=== PATIENT | male | born 1965 | race Caucasian/White ===

== ENCOUNTER 2018-12-29 21:15 | Emergency (ER) | payer BC ==
[2018-12-29] MEDS ORDERED: IBUPROFEN 400 MG TAB PO STA (21:46)
--- NOTE | 2018-12-29 22:04 | XR ---
EXAMINATION TYPE: XR chest 2V DATE OF EXAM: 12/29/2018 COMPARISON: NONE HISTORY: Cough and fever TECHNIQUE: Frontal and lateral views of the chest are obtained. FINDINGS: Heart and mediastinum are normal. Lungs are clear. Diaphragm is normal. There are sternal wires. Bony thorax is intact. There is some thickening left ninth rib that could be old healed fractu re. IMPRESSION: No active cardiopulmonary disease.
--- NOTE | 2018-12-29 22:06 | ED ---
Fever HPI - General Chief Complaint: Fever Stated Complaint: Cough Time Seen by Provider: 12/29/18 21:40 Source: patient, RN notes reviewed Mode of arrival: ambulatory Limitations: no limitations - History of Present Illness Initial Comments: This is a 53-year-old male who presents with complaints of a cough fever some generalized weakness some rhinorrhea began yesterday. He states his daughter was recently diagnosed with influenza type B about 2 days ago. He believes he may have gotten the same thing. No chest pain no nausea vomiting no other mo difying factors this time MD Complaint: fever, malaise - Related Data Home Medications Medication Instructions Recorded Confirmed Aspirin EC [Ecotrin Low Dose] 81 mg PO DAILY 12/29/18 12/29/18 DULoxetine HCL [Cymbalta] 60 mg PO DAILY 12/29/18 12/29/18 Lisinopril [Zestril] 5 mg PO DAILY 12/29/18 12/29/18 Metoprolol Tartrate [Lopressor] 50 mg PO BID 12/29/18 12/29/18 Omeprazole 20 mg PO DAILY 12/29/18 12/29/18 Previous Rx's Medication Instructions Recorded Ibuprofen 800 mg PO Q6HR PRN #20 tablet 12/29/18 Oseltamivir [Tamiflu] 75 mg PO Q12HR #10 cap 12/29/18 Allergies Allergy/AdvReac Type Severity Reaction Status Date / Time No Known Allergies Allergy Verified 12/29/18 22:36 Review of Systems ROS Statement: Those systems with pertinent positive or pertinent negative responses have been documented in the HPI. ROS Other: All systems not noted in ROS Statement are negative. Past Medical History Past Medical History: Diabetes Mellitus, Hypertension History of Any Multi-Drug Resistant Organisms: None Reported Past Surgical History: Back Surgery, Coronary Bypass/CABG Past Psychological History: No Psychological Hx Reported Smoking Status: Current some day smoker Past Alcohol Use History: Rare Past Drug Use History: None Reported General Exam - General Exam Comments Initial Comments: This is a well-developed well-nourished awake alert oriented 3 male Limitations: no limitations General appearance: alert, anxious Head exam: Present: atraumatic, normocephalic, normal inspection Eye exam: Present: PERRL, EOMI ENT exam: Present: other (Boggy swollen nasal mucosa) Neck exam: Present: normal inspection. Absent: tenderness, meningismus, lymphadenopathy Respiratory exam: Present: normal lung sounds bilaterally. Absent: respiratory distress, wheezes, rales, rhonchi, stridor Cardiovascular Exam: Present: regular rate, normal rhythm, normal heart sounds. Absent: systolic murmur, diastolic murmur, rubs, gallop, clicks GI/Abdominal exam: Present: soft, normal bowel sounds. Absent: distended, tenderness, guarding, rebound, rigid Extremities exam: Present: normal inspection, full ROM, normal capillary refill. Absent: tenderness, pedal edema, joint swelling, calf tenderness Back exam: Present: normal inspection Neurological exam: Present: alert, oriented X3, CN II-XII intact Psychiatric exam: Present: normal affect, normal mood Skin exam: Present: warm, dry, intact, normal color. Absent: rash Course Vital Signs 12/29/18 12/29/18 21:29 23:09 Temperature 103 F H 102.4 F H Pulse Rate 98 Respiratory 24 Rate Blood Pressure 132/76 O2 Sat by Pulse 96 Oximetry Medical Decision Making - Medical Decision Making Patient was nauseated he feels improved after Zofran. Patient was given Tamiflu. He is influenza type B positive. I did have a discussion with him regarding the findings. Patient will be discharged on appropriate medication - Lab Data Lab Results 12/29/18 Range/Units 21:50 Influenza Type A RNA Not Detected (Not Detectd) Influenza Type B (PCR) Detected H (Not Detectd) - Radiology Data Radiology results: report reviewed (I did review the imaging and report no acute findings), image reviewed Disposition Clinical Impression: Febrile illness, acute, Influenza B Disposition: HOME SELF-CARE Condition: Good Instructions (If sedation given, give patient instructions): Fever in Adults (ED), Viral Syndrome (ED), Influenza (ED) Prescriptions: Ibuprofen 800 mg PO Q6HR PRN #20 tablet PRN Reason: Pain Oseltamivir [Tamiflu] 75 mg PO Q12HR #10 cap Is patient prescribed a controlled substance at d/c from ED?: No Referrals: Nonstaff,Physician [Primary Care Provider] - 1-2 days
[2018-12-29] MEDS ORDERED: ONDANSETRON ODT 4 MG TAB PO STA (22:28)
[2018-12-29] MEDS ORDERED: OSELTAMIVIR 75 MG CAP PO STA (22:30)
[2018-12-29] MEDS ORDERED: ACETAMINOPHEN TAB 500 MG TAB PO STA (22:56)
[2018-12-29 23:10] VITALS: TEMP 102.4
[2018-12-29 23:35] VITALS: BP 154/99; PULSE 90; RESP 22
== END 2018-12-29 23:36 | disposition home or self-care (01) ==
LOC: EC 21:15
DX: J10.1 Influenza due to other identified influenza virus with other respiratory manifestations (principal); R11.0 Nausea; I10 Essential (primary) hypertension; F17.200 Nicotine dependence, unspecified, uncomplicated; Z79.82 Long term (current) use of aspirin; Z79.899 Other long term (current) drug therapy; Z95.1 Presence of aortocoronary bypass graft
CPT/HCPCS: 71046; 87502; 99283

== ENCOUNTER 2020-07-19 01:25 | Emergency (ER) | payer BC ==
[2020-07-19 01:41] VITALS: BP 179/79; PULSE 97; RESP 18; TEMP 98.5
[2020-07-19] MEDS ORDERED: cefTRIAXone 250 MG VIAL IM STA (02:17)
--- NOTE | 2020-07-19 02:17 | ED ---
Extremity Problem HPI - General Chief complaint: Extremity Problem,Nontraumatic Stated complaint: Left finger pain Time Seen by Provider: 07/19/20 01:54 Source: patient Mode of arrival: ambulatory Limitations: no limitations - History of Present Illness Initial comments: Patient is a 55-year-old male presenting to emergency Department with complaints of pain in his left index finger with her increasing over the past few days. Patient states he has had infections near his nail bed in the past, he's had them drained in the past. He states he has not been on antibiotics for a month. States last few days he's noticed swelling and some mild redness to the the finger and would like antibiotics before the infection gets worse. He states he does chew on his fingernails a lot and that the cause of it. He has not seen a hand specialist for this. He denies any fever or chills, no nausea or vomiting. He has no further complaints at this time. - Related Data Home Medications Medication Instructions Recorded Confirmed Aspirin EC [Ecotrin Low Dose] 81 mg PO DAILY 12/29/18 12/29/18 DULoxetine HCL [Cymbalta] 60 mg PO DAILY 12/29/18 12/29/18 Metoprolol Tartrate [Lopressor] 50 mg PO BID 12/29/18 12/29/18 Omeprazole 20 mg PO DAILY 12/29/18 12/29/18 lisinopriL [Zestril] 5 mg PO DAILY 12/29/18 12/29/18 Previous Rx's Medication Instructions Recorded Ibuprofen 800 mg PO Q6HR PRN #20 tablet 12/29/18 Oseltamivir [Tamiflu] 75 mg PO Q12HR #10 cap 12/29/18 Cephalexin [Keflex] 500 mg PO Q6HR 5 Days #20 cap 07/19/20 Allergies Allergy/AdvReac Type Severity Reaction Status Date / Time No Known Allergies Allergy Verified 07/19/20 01:41 Review of Systems ROS Statement: Those systems with pertinent positive or pertinent negative responses have been documented in the HPI. ROS Other: All systems not noted in ROS Statement are negative. Past Medical History Past Medical History: Diabetes Mellitus, Hypertension History of Any Multi-Drug Resistant Organisms: None Reported Past Surgical History: Back Surgery, Coronary Bypass/CABG Past Psychological History: No Psychological Hx Reported Smoking Status: Current every day smoker Past Alcohol Use History: Rare Past Drug Use History: Marijuana General Exam - General Exam Comments Initial Comments: GENERAL: Patient is well-developed and well-nourished. Patient is nontoxic and in no acute distress. HEAD: Atraumatic, normocephalic. EYES: Pupils equal round and reactive to light, extraocular movements intact, sclera anicteric, conjunctiva are normal. Eyelids were unremarkable. ENT: TMs normal, nares patent, oropharynx clear without exudates. Moist mucous membranes. NECK: Normal range of motion, supple without lymphadenopathy or JVD. LUNGS: Unlabored respirations. Breath sounds clear to auscultation bilaterally and equal. No wheezes rales or rhonchi. HEART: Regular rate and rhythm without murmurs, rubs or gallops. ABDOMEN: Soft, nontender, normoactive bowel sounds. No guarding, no rebound. No masses appreciated. : Deferred MUSCULOSKELETAL: Patient has full range of motion of his left hand and fingers. Normal extremities with adequate strength and normal range of motion, no pitting or edema. No clubbing or cyanosis. NEUROLOGICAL: Patient is alert and oriented x 3. Motor and sensory are also intact. Normal speech, normal gait. PSYCH: Normal mood, normal affect. SKIN: Warm, Dry, normal turgor, no rashes or lesions noted. Patient has a very mild erythema of the left distal index finger, near the nail. There is no abscess, no felon. Limitations: no limitations Course Vital Signs 07/19/20 01:37 Temperature 98.5 F Pulse Rate 97 Respiratory 18 Rate Blood Pressure 179/79 O2 Sat by Pulse 98 Oximetry Medical Decision Making - Medical Decision Making Patient is a 55-year-old male here for left index finger pain is increasing the past few months. There is a very mild erythema to the area and no swelling, no signs of infection. His vitals are stable he is afebrile. Patient is requesting to be put on antibiotics as he has had infections in the same spot in the past. He states the "shot works better." Patient will be given 250mg of rocephin and started on keflex. Given hand specialist referral. He is stable for discharge. He is in agreement with this plan of care. Return parameters were discussed with the patient he verbalizes understanding. Disposition Clinical Impression: Cellulitis of left index finger Disposition: HOME SELF-CARE Condition: Stable Instructions (If sedation given, give patient instructions): Arthralgia (ED) Additional Instructions: Please return to the Emergency Department if symptoms worsen or any other concerns. Take antibiotics as prescribed. Follow up with hand specialist as discussed. Prescriptions: Cephalexin [Keflex] 500 mg PO Q6HR 5 Days #20 cap Is patient prescribed a controlled substance at d/c from ED?: No Referrals: Nonstaff,Physician [Primary Care Provider] - 1-2 days Dany Lee DO [Doctor of Osteopathic Medicine] - 1-2 days
== END 2020-07-19 02:38 | disposition home or self-care (01) ==
LOC: EC 01:25
DX: L03.012 Cellulitis of left finger (principal); E11.9 Type 2 diabetes mellitus without complications; I10 Essential (primary) hypertension; F17.200 Nicotine dependence, unspecified, uncomplicated; Z79.82 Long term (current) use of aspirin; Z79.899 Other long term (current) drug therapy; Z95.1 Presence of aortocoronary bypass graft
CPT/HCPCS: 99283; 96372; J0696

== ENCOUNTER 2020-07-22 16:51 | Inpatient (IN) | payer BC ==
[2020-07-22] MEDS ORDERED: MAG HYDROX/AL HYDROX/SIMETH 30 ML CUP PO PRN (17:09)
[2020-07-22] MEDS ORDERED: ACETAMINOPHEN TAB 325 MG TAB PO PRN (17:09)
[2020-07-22] MEDS ORDERED: ONDANSETRON 4 MG/2 ML VIAL IVP PRN (17:09)
[2020-07-22] MEDS ORDERED: DOCUSATE 100 MG CAP PO PRN (17:09)
[2020-07-22] MEDS ORDERED: LOPERAMIDE 2 MG CAP PO PRN (17:09)
[2020-07-22] MEDS ORDERED: TEMAZEPAM 15 MG CAP PO PRN (17:09)
[2020-07-22] MEDS ORDERED: NALOXONE 0.4 MG/ML 1 ML VIAL IV PRN (17:09)
[2020-07-22] MEDS ORDERED: MAGNESIUM HYDROXIDE 2,400 MG/10 ML CUP PO PRN (17:09)
[2020-07-22] MEDS ORDERED: bisacodyL 5 MG TABLET.DR PO PRN (17:09)
[2020-07-22] MEDS ORDERED: VANCOMYCIN IV PER PHARMACY 1 EACH MISC MISCELLANE SCH (17:15)
--- NOTE | 2020-07-22 17:47 | P.HPOR ---
History of Present Illness H&P Date: 07/22/20 Chief Complaint: Left index finger infection This is a 55-year-old male who presented to our office today with history of chronic infection to the left index finger. He states that he has been to the emergency department a couple of times and has been on antibiotics for his infection. He states that he does bite his fingernails and is diabetic. X-rays were taken in our office today which showed osteomyelitis to the distal phalanx of the left index finger. A debridement was performed in the office today and purulent material was drained from the finger. Cultures were taken. He reports no fever or chills. Past Medical History Past Medical History: Diabetes Mellitus, Hypertension History of Any Multi-Drug Resistant Organisms: None Reported Past Surgical History: Back Surgery, Coronary Bypass/CABG Past Psychological History: No Psychological Hx Reported Smoking Status: Current every day smoker Past Alcohol Use History: Rare Past Drug Use History: Marijuana Medications and Allergies Home Medications Medication Instructions Recorded Confirmed Type Aspirin EC [Ecotrin Low Dose] 81 mg PO DAILY 12/29/18 12/29/18 History DULoxetine HCL [Cymbalta] 60 mg PO DAILY 12/29/18 12/29/18 History Ibuprofen 800 mg PO Q6HR PRN #20 tablet 12/29/18 Rx Metoprolol Tartrate [Lopressor] 50 mg PO BID 12/29/18 12/29/18 History Omeprazole 20 mg PO DAILY 12/29/18 12/29/18 History Oseltamivir [Tamiflu] 75 mg PO Q12HR #10 cap 12/29/18 Rx lisinopriL [Zestril] 5 mg PO DAILY 12/29/18 12/29/18 History Cephalexin [Keflex] 500 mg PO Q6HR 5 Days #20 cap 07/19/20 Rx Allergies Allergy/AdvReac Type Severity Reaction Status Date / Time No Known Allergies Allergy Verified 07/19/20 01:41 Physical Examination Exam Of the left upper extremity Reveal swelling and mild erythema to the left index fingertip. There is slight deformity to the nail bed. There is no active drainage. He has dulled sensation to the fingertip. Fairly normal motion to the MCP And PIP joints. Slight limitation in motion at the DIP joint. Results X-rays taken in our office today show bony erosion consistent with osteomyelitis to the distal phalanx. No acute fracture noted. Assessment and Plan (1) Osteomyelitis of finger of left hand Status: Acute Code(s): M86.9 - OSTEOMYELITIS, UNSPECIFIED SNOMED Code(s): 98380185 (2) Diabetes Status: Acute Code(s): E11.9 - TYPE 2 DIABETES MELLITUS WITHOUT COMPLICATIONS SNOMED Code(s): 82676341 (3) Cellulitis of left index finger Status: Acute Code(s): L03.012 - CELLULITIS OF LEFT FINGER SNOMED Code(s): 43175130 Plan: The clinical and electrical findings are discussed with the patient. An I&D as performed in the office today. Partial removal of the nail is also performed. Some purulent material drained from under the nail. The wound was irrigated. Packing is placed in the wound. Cultures are taken. He'll be admitted to the hospital for IV antibiotics and consultation with internal medicine and infectious disease. Please see admission orders.
[2020-07-22 18:59] LABS: Basophils # (A) 0.1 k/uL (0-0.2); Basophils % (A) 1 %; Eosinophils # (A) 0.2 k/uL (0-0.7); Eosinophils % (A) 2 %; HCT 50.2 % (39.0-53.0); HGB 16.8 gm/dL (13.0-17.5); Lymphocytes # (A) 2.5 k/uL (1.0-4.8); Lymphocytes % (A) 27 %; MCH 31.1 pg (25.0-35.0); MCHC 33.4 g/dL (31.0-37.0); MCV 93.1 fL (80.0-100.0); Mean Platelet Volume 7.2; Monocytes # (A) 0.6 k/uL (0-1.0); Monocytes % (A) 6 %; Neutrophils # (A) 5.6 k/uL (1.3-7.7); Neutrophils % (A) 62 %; Platelet Count 256 k/uL (150-450)
[2020-07-22] MEDS ORDERED: VANCOMYCIN 1,500 MG in SODIUM CHLORIDE 0.9% 250 ML IVPB ONE (19:00)
[2020-07-22 19:04] LABS: ALT 23 U/L (4-49); AST 23 U/L (17-59); African American GFR (CKD) >90 (>60 ml/min/1.73 sqM); Albumin 4.2 g/dL (3.5-5.0); Albumin/Globulin Ratio 1.3; Alkaline Phosphatase 108 U/L (38-126); Anion Gap 8 mmol/L; Blood Urea Nitrogen 17 mg/dL (9-20); Calcium 9.8 mg/dL (8.4-10.2); Carbon Dioxide 24 mmol/L (22-30); Chloride 99 mmol/L (98-107); Globulin 3.2 g/dL; Glucose 424 mg/dL (74-99); Non-African American GFR(CKD) >90 (>60 ml/min/1.73 sqM); Potassium 4.4 mmol/L (3.5-5.1); Sodium 131 mmol/L (137-145); Total Bilirubin 0.5 mg/dL (0.2-1.3); Total Protein 7.4 g/dL (6.3-8.2)
[2020-07-22 20:10] LABS: Glucose,Whole Blood 405 mg/dL (75-99)
--- NOTE | 2020-07-22 20:30 | P.CONS ---
History of Present Illness - Reason for Consult Consult date: 07/22/20 hyperglycemia Requesting physician: Williams Lee - Chief Complaint left index finger osteomyelitis - History of Present Illness 55 year old male with DM poorly controlled , Hypertension patient comes in direct admit from ortho office for left index finger osteomyelitis, patient had swelling and pain for about 2 months now, received multiple antibiotic courses and drainage was done once, but the infection keeps recurring. today he was evaluated by hand surgeon, who diagnosed patient with osteomyeilitis. debridement was done and tissue cultures obtained. patient a dmitted for IV antibiotics. he otherwise reports pain well controlled at this time. denies any fever or chills. he has hyperglycemia, and claims compliance with insulin, however, he admits that his diet is not well controlled, and he often finds his blood sugar above 200. he reports peripheral neuropathy, and a lesion over his right foot at the base of the 5th metatarsal bone , where he was supposed to have some debridement done for it couple weeks ago , but had to be rescheduled due to hyperglycemia he otherwise denies any chest pain , URI symptoms, GI symptoms, or urinary changes. Review of Systems Pertinent positives as noted in HPI. All other systems were reviewed and are negative Past Medical History Past Medical History: Diabetes Mellitus, Hypertension Additional Past Medical History / Comment(s): pancreatitis History of Any Multi-Drug Resistant Organisms: None Reported Past Surgical History: Back Surgery, Coronary Bypass/CABG Past Psychological History: No Psychological Hx Reported Smoking Status: Current every day smoker Past Alcohol Use History: Rare Past Drug Use History: Marijuana - Past Family History Mother Additional Family Medical History / Comment(s): pancreatitis Medications and Allergies Home Medications Medication Instructions Recorded Confirmed Type Aspirin EC [Ecotrin Low Dose] 81 mg PO DAILY 12/29/18 07/22/20 History DULoxetine HCL [Cymbalta] 60 mg PO DAILY 12/29/18 07/22/20 History Metoprolol Tartrate [Lopressor] 50 mg PO BID 12/29/18 07/22/20 History Insulin Aspart [NovoLOG Flexpen] 14 units SQ AC-TID 07/22/20 07/22/20 History Insulin NPH Human Isophane 52 units SQ HS 07/22/20 07/22/20 History [NovoLIN N] Allergies Allergy/AdvReac Type Severity Reaction Status Date / Time No Known Allergies Allergy Verified 07/22/20 18:52 Physical Exam Vitals: Vital Signs Temp Pulse Resp BP Pulse Ox 07/22/20 18:26 98.4 F 88 16 148/92 98 Intake and Output 07/22/20 07/22/20 07/22/20 06:59 14:59 22:59 Other: Weight 95.254 kg Constitutional: No acute distress, conversant, pleasant Eyes: Anicteric sclerae, moist conjunctiva, Pupils equal round reactive to light ENMT: NC/AT Oropharynx clear, no erythema, or exudates Neck: Supple, FROM, no masses, or JVD No carotid bruits No thyromegaly Lungs: Clear to auscultation Clear to percussion Normal respiratory effort, no accessory muscle use Cardiovascular: Heart regular in rate and rhythm, No murmurs, gallops, or rubs No peripheral edema Abdominal: Soft Nontender, no guarding, rebound or rigidity Abdomen moving with respiration Normoactive bowel sounds No hepatomegaly, No splenomegaly No palpable mass No abdominal wall hernia noted Skin: Normal temperature, tone, texture, turgor No induration No subcutaneous nodules small area of skin thickening over the base of 5th metatarsal bone, no open wounds or drainage no tenderness or erythema No ulcers Extremities: left index finger wrapped in surgical dressing looks dry intact and clean No digital cyanosis No clubbing Pedal pulses intact and symmetrical Radial pulses intact and symmetrical No calf tenderness Psychiatric: Alert and oriented to person, place and time Appropriate affect fair judgement Neuro Muscles Strength 5/5 in all 4 extremities Sensation to light touch grossly present throughout Cranial nerves II-XII grossly intact No focal sensory deficits Lymphatics: no palpable cervical or supraclavicular , or inguinal lymph nodes Results CBC & Chem 7: 07/22/20 18:36 07/22/20 18:36 Labs: Abnormal Lab Results - Last 24 Hours (Table) 07/22/20 Range/Units 18:36 Sodium 131 L (137-145) mmol/L Glucose 424 H (74-99) mg/dL Assessment and Plan Assessment: osteomyelitis of left index finger s/p debridement and tissue cultures follow up cultures on Vancomycin pain control tylenol for fever DM with hyperglycemia check A1C preprandial insulin and long acting insulin insulin sliding scale hypertension , controlled resume home meds history of CAD resume home meds tobacco smoking counseled to quit smoking nicotine replacement therapy CODE STATUS full code DVT prophylaxis: heparin sc tid Thank you for allowing us to participate in the care of this patient. Do not hesitate to contact us with questions. Someone can be reached from the [facility] hospitalist group at all hours of the day at [phone].
[2020-07-22] MEDS: SODIUM CHLORIDE 0.9% 1,000 ML IV SCH (21:29)
[2020-07-22] MEDS: NICOTINE 14MG/24HR PATCH TRANSDERM SCH (21:29)
[2020-07-22] MEDS: INSULIN NPH 300 UNIT/3 ML VIAL SQ SCH (21:29)
[2020-07-22] MEDS: METOPROLOL TARTRATE 50 MG TAB PO SCH (21:30)
[2020-07-22] MEDS: HYDROcodone/APAP 5-325MG 1 EACH TAB PO PRN (21:30)
[2020-07-22] MEDS: INSULIN ASPART (NovoLOG) 100 UNIT/ML VIAL SQ SCH (21:30)
[2020-07-22] MEDS: HEPARIN SODIUM,PORCINE 5,000 UNIT/ML 1 ML VIAL SQ SCH (23:43)
[2020-07-22] MEDS: MORPHINE SULFATE 4 MG/ML SYRINGE IVP PRN (23:46)
[2020-07-23] MEDS: MORPHINE SULFATE 4 MG/ML SYRINGE IVP PRN ×4 (04:52→20:51)
[2020-07-23] MEDS: VANCOMYCIN 1,500 MG in SODIUM CHLORIDE 0.9% 250 ML IVPB SCH ×3 (05:48→20:52)
[2020-07-23 07:29] LABS: Glucose,Whole Blood 209 mg/dL (75-99)
[2020-07-23] MEDS: INSULIN ASPART (NovoLOG) 100 UNIT/ML VIAL SQ SCH ×7 (08:02→20:45)
[2020-07-23] MEDS: METOPROLOL TARTRATE 50 MG TAB PO SCH ×2 (08:03→20:53)
[2020-07-23] MEDS: DULoxetine HCL 60 MG CAPSULE.DR PO SCH (08:03)
[2020-07-23] MEDS: NICOTINE 14MG/24HR PATCH TRANSDERM SCH (08:06)
[2020-07-23] MEDS: HYDROcodone/APAP 5-325MG 1 EACH TAB PO PRN (08:14)
[2020-07-23] MEDS: HEPARIN SODIUM,PORCINE 5,000 UNIT/ML 1 ML VIAL SQ SCH ×3 (08:15→22:47)
--- NOTE | 2020-07-23 10:35 | P.PN ---
Subjective Progress Note Date: 07/23/20 This is a 55 year-old male who is admitted for chronic infection to the left index finger. Patient is seen and evaluated at bedside today. Patient states that the finger is still painful, but the pain has improved since yesterday. Patient states that he removed his packing earlier today. Patient denies any new complaints today. Objective - Vital Signs Vital signs: Vital Signs Temp 98.4 F 07/23/20 08:00 Pulse 72 07/23/20 08:00 Resp 16 07/23/20 08:00 BP 137/80 07/23/20 08:00 Pulse Ox 97 07/23/20 08:00 Intake & Output 07/22/20 07/23/20 07/23/20 18:59 06:59 18:59 Intake Total 200 Balance 200 Weight 95.254 kg Intake: Intake, IV Titration 200 Amount Sodium Chloride 0.9% 1, 200 000 ml @ 20 mls/hr IV . Q24H [facility] Rx#:[id number] Other: Voiding Method Toilet Toilet # Voids 3 - Exam On exam patient is resting comfortably in bed in no acute distress. Patient is alert and oriented x3. Dressing removed from left index finger. Mild bloody drainage present on bandage. No active drainage. No purulent drainage present. There is swelling of the distal left index finger. Mild erythema. Sensation intact. Neurovascular status and circulatory status are intact. - Labs CBC & Chem 7: 07/22/20 18:36 07/22/20 18:36 Labs: Abnormal Lab Results - Last 24 Hours (Table) 07/22/20 07/22/20 07/23/20 Range/Units 18:36 20:08 07:02 Sodium 131 L (137-145) mmol/L Glucose 424 H (74-99) mg/dL POC Glucose (mg/dL) 405 H 209 H (75-99) mg/dL Microbiology - Last 24 Hours (Table) 07/22/20 19:18 Gram Stain - Preliminary Finger - Left First Wound Culture - Preliminary 07/22/20 19:18 Anaerobic Culture - Preliminary Finger - Left First Assessment and Plan (1) Cellulitis of left index finger Current Visit: No Status: Acute Code(s): L03.012 - CELLULITIS OF LEFT FINGER SNOMED Code(s): 30713539 Plan: 1. Daily dressing changes. Wound care per infectious disease. 2. Continue IV antibiotics. 3. Appreciate input from internal medicine and infectious disease. 4. No surgical intervention planned. Anticipate discharge in the next 24-48 hours.
[2020-07-23] MEDS: guaiFENesin 600 MG TABLET.ER PO SCH ×2 (11:20→20:52)
--- NOTE | 2020-07-23 11:27 | P.PN ---
<Klever Edwards - Last Filed: 07/23/20 16:57> Subjective Progress Note Date: 07/23/20 Principal diagnosis: Chief Complaint Osteomyelitis left index finger History of presenting illness Patient is 55-year-old male with a past medical history of hypertension, and poorly controlled insulin-dependent diabetes mellitus. He presented to [facility] on 07/22/20 and is currently admitted under orthopedic surgery secondary to osteomyelitis of his left index finger. Patient has reportedly been undergoing outpatient treatment over the past 2 months for infection, swelling, and pain in his left index finger receiving multiple cours es of antibiotic treatment. He failed outpatient treatment and was seen in orthopedic office yesterday where an x-ray was completed revealing osteomyelitis to the distal phalanx of the left index finger. Debridement was performed and cultures were obtained. 07/23/20: Patient seen and evaluated at the bedside. He was resting comfortably with no complaints of pain or discomfort at this time. Dressing to left index finger was removed revealing mild swelling and inflammation surrounding fingernail and distal portion of his finger. Full range of motion and sensation intact. In addition patient reports having pain behind his right ear and some sinus drainage. Patient denies having any other complaints including fever, chills, diaphoresis, chest pain, or shortness of breath. Cultures obtained from left finger drainage status post debridement and currently pending results. Pt currently on IV vancomycin, pharmacy to dose. WBC count was 9.0 and will be repeated in a.m. Blood sugar initially poorly controlled with glucose 424 on presentation. Pt was placed on hypoglycemic protocol with sliding scale along with long acting and pre-prandial insulin in attempts to achieve tighter glycemic control. Currently blood glucose 209. Will continue to monitor with repeat a.m. labs. Physical Examination: General: non toxic, no distress, appears at stated age Derm: generally warm and dry with pink undertones. Dressing to left index finger was removed revealing mild swelling and inflammation surrounding fingernail and distal portion of his index finger. Full range of motion and sensation intact. Head: atraumatic, normocephalic, symmetric Eyes: EOMI, no lid lag, anicteric sclera Mouth: no lip lesion, mucus membranes moist Cardiovascular: S1S2 reg, no murmur, positive posterior tibial pulse bilateral, Lungs: Slightly diminished at bilateral bases with diffuse bilateral expiratory wheezes present (worse on right). Respirations even, regular, and unlabored on room air with no accessory muscle use. Coarse cough present on examination. (Pt states it is a chronic cough resulting from longstanding hx of smoking). Abdominal: soft, nontender to palpation, no guarding, no appreciable organomegaly Ext: no gross muscle atrophy, no edema, no contractures Neuro: CN II-XI grossly intact, no focal neuro deficits Psych: Alert, oriented, appropriate affect Objective - Vital Signs Vital signs: Vital Signs Temp 98.4 F 07/23/20 08:00 Pulse 72 07/23/20 08:00 Resp 16 07/23/20 08:00 BP 137/80 07/23/20 08:00 Pulse Ox 97 07/23/20 08:00 Intake & Output 07/22/20 07/23/20 07/23/20 18:59 06:59 18:59 Intake Total 200 Balance 200 Weight 95.254 kg Intake: Intake, IV Titration 200 Amount Sodium Chloride 0.9% 1, 200 000 ml @ 20 mls/hr IV . Q24H [facility] Rx#:[id number] Other: Voiding Method Toilet Toilet # Voids 3 - Labs CBC & Chem 7: 07/22/20 18:36 07/22/20 18:36 Labs: Abnormal Lab Results - Last 24 Hours (Table) 07/22/20 07/22/20 07/23/20 Range/Units 18:36 20:08 07:02 Sodium 131 L (137-145) mmol/L Glucose 424 H (74-99) mg/dL POC Glucose (mg/dL) 405 H 209 H (75-99) mg/dL Microbiology - Last 24 Hours (Table) 07/22/20 19:18 Gram Stain - Preliminary Finger - Left First Wound Culture - Preliminary 07/22/20 19:18 Anaerobic Culture - Preliminary Finger - Left First Assessment and Plan Plan: Osteomyelitis of left index finger -Dressing to left index finger was removed revealing mild swelling and inflammation surrounding fingernail and distal portion of his finger. -Full range of motion and sensation intact. -Cultures obtained from left finger drainage status post debridement and currently pending results. -Pt currently on IV vancomycin, pharmacy to dose. -WBC count was 9.0 and will be repeated in a.m -CRP ordered and will be repeated in a.m. -Wound care/dressing changes to continue daily and as needed. -Pain management with tylenol as needed for mild pain and/or fever, medical for moderate pain, and morphine for severe pain. -Infectioous disease consulted, appreciate recommendations. Insulin-dependent Diabetes mellitus type II with Hyperglycemia -Blood sugar initially poorly controlled with glucose 424 on presentation. Pt was placed on hypoglycemic protocol with sliding scale along with long acting and pre-prandial insulin in attempts to achieve tighter glycemic control. Currently blood glucose 209. -A1c Hypertension -Monitor vital signs and patient to continue daily medication management including metoprolol tartrate. Tobacco dependence -Counseled on importance of tobacco cessation and risks of continued use. -Nicotine patch CODE STATUS Full code DVT prophylaxis: Heparin Thank you for allowing us to participate in the care of this patient. Do not hesitate to contact us with questions. Someone can be reached from the [facility] hospitalist group at all hours of the day at [phone]. <Marcelina Caicedo - Last Filed: 07/23/20 19:37> Objective - Vital Signs Vital signs: Vital Signs Temp 98.5 F 07/23/20 14:00 Pulse 85 07/23/20 14:00 Resp 16 07/23/20 14:00 BP 161/80 07/23/20 14:00 Pulse Ox 98 07/23/20 14:00 Intake & Output 07/23/20 07/23/20 07/24/20 06:59 18:59 06:59 Intake Total 200 450 Balance 200 450 Intake: Intake, IV Titration 200 Amount Sodium Chloride 0.9% 1, 200 000 ml @ 20 mls/hr IV . Q24H [facility] Rx#:[id number] Oral 450 Other: Voiding Method Toilet Toilet # Voids 3 2 - Labs CBC & Chem 7: 07/22/20 18:36 07/22/20 18:36 Labs: Abnormal Lab Results - Last 24 Hours (Table) 07/22/20 07/23/20 07/23/20 Range/Units 20:08 06:17 07:02 POC Glucose (mg/dL) 405 H 209 H (75-99) mg/dL Hemoglobin A1c 14.6 H (4.0-6.0) % 07/23/20 07/23/20 Range/Units 11:28 17:00 POC Glucose (mg/dL) 74 L 324 H (75-99) mg/dL Hemoglobin A1c (4.0-6.0) % Microbiology - Last 24 Hours (Table) 07/22/20 19:18 Gram Stain - Preliminary Finger - Left First Wound Culture - Preliminary 07/22/20 19:18 Anaerobic Culture - Preliminary Finger - Left First Assessment and Plan Plan: Patient seen and examined independently. Patient was also seen by Klever Edwards NP and case was discussed. I am in agreement with subjective, physical exam, assessment and plan as written above and amended below. General: Ill-appearing, no distress, appears at stated age Derm: Dressing in place over left second finger warm, dry Head: atraumatic, normocephalic, symmetric Eyes: EOMI, no lid lag, anicteric sclera Mouth: no lip lesion, mucus membranes moist Cardiovascular: S1S2 reg, no murmur, positive posterior tibial pulse bilateral, Lungs: CTA bilateral, no rhonchi, no rales , no accessory muscle use Abdominal: soft, nontender to palpation, no guarding, no appreciable organomegaly Ext: no gross muscle atrophy, no edema, no contractures Neuro: CN II-XI grossly intact, no focal neuro deficits Psych: Alert, oriented, appropriate affect Osteomyelitis, left second digit - add unasyn
--- NOTE | 2020-07-23 11:33 | XR ---
EXAMINATION TYPE: XR chest 1V portable DATE OF EXAM: 07/23/2020 COMPARISON: Prior chest x-ray 12/29/2018 HISTORY: Wheezing, congestion, cough TECHNIQUE: Single frontal view of the chest is obtained. FINDINGS: There is no focal air space opacity, pleural effusion, or pneumothorax seen. The cardiac silhouette size is within normal limits. The osseous structures are intact. IMPRESSION: No acute process.
[2020-07-23 11:36] LABS: Glucose,Whole Blood 74 mg/dL (75-99)
--- NOTE | 2020-07-23 14:19 | XR ---
Second digit left hand HISTORY: Infection 3 views the second digit left hand There is bone erosion of the tuft medially at the second digit of the left hand. Soft tissue swelling is present. No evident periostitis. Some osteoarthritic changes are present at the interphalangeal j oints. IMPRESSION: Findings consistent with osteomyelitis
[2020-07-23] MEDS: SODIUM CHLORIDE 0.9% 1,000 ML IV SCH (16:12)
[2020-07-23 17:09] LABS: Glucose,Whole Blood 324 mg/dL (75-99)
[2020-07-23] MEDS: AMPICILLIN-SULBACTAM 3 GM in SODIUM CHLORIDE 0.9% 100 ML IVPB SCH ×2 (17:39→23:48)
[2020-07-23 19:13] LABS: Hemoglobin A1C 14.6 % (4.0-6.0)
[2020-07-23 20:45] LABS: Glucose,Whole Blood 262 mg/dL (75-99)
[2020-07-23] MEDS: INSULIN NPH 300 UNIT/3 ML VIAL SQ SCH (20:52)
[2020-07-23 22:02] LABS: Anion Gap 10.9 mmol/L (4.00-12.00); BUN/Creat Ratio 17.78 Ratio (12.00-20.00); Carbon Dioxide 24.1 mmol/L (21.6-31.8); Non-African American GFR(CKD) 95.8 (60.0-200.0); Potassium 3.8 mmol/L (3.5-5.5)
--- NOTE | 2020-07-23 22:35 | P.CONS ---
History of Present Illness - Reason for Consult Consult date: 07/23/20 Left index finger infection/osteomyelitis Requesting physician: Charla Ellsworth - Chief Complaint left index finger nonhealing infection x 2 months - History of Present Illness Patient is a 55-year-old male who apparently did have the have habit of chewing on his left index finger, patient subsequently did develop a wound to the left index finger with secondary pain swelling and redness for the patient has been seen twice at [facility] ER and the patient has been given 2 different courses of antibiotic with the patient not sure about the name patient did not have any improvement subsequently patient was referred to orthopedic associate patient apparently did have x-rays taken and he did have x- rays taken the office with evidence of osteomyelitis of distal phalanx of the left index finger patient did have debridement in the office with evidence of purulent material cultures were obtained and the patient was subsequently sent to [facility] ER [facility] the [facility] for IV antibiotic therapy the patient started on vancomycin infectious was consulted for further management of antibiotic therapy patient currently complaining of pain to the left index finger to be dull aching 3-4 out of 10 and no radiation with associated surrounding swelling redness and minimal drainage Review of Systems Positive point has been mentioned in the HPI rest of the systems are negative Past Medical History Past Medical History: Diabetes Mellitus, Hypertension Additional Past Medical History / Comment(s): pancreatitis History of Any Multi-Drug Resistant Organisms: None Reported Past Surgical History: Back Surgery, Coronary Bypass/CABG Past Psychological History: No Psychological Hx Reported Smoking Status: Current every day smoker Past Alcohol Use History: Rare Past Drug Use History: Marijuana - Past Family History Mother Additional Family Medical History / Comment(s): pancreatitis Medications and Allergies Home Medications Medication Instructions Recorded Confirmed Type Aspirin EC [Ecotrin Low Dose] 81 mg PO DAILY 12/29/18 07/22/20 History DULoxetine HCL [Cymbalta] 60 mg PO DAILY 12/29/18 07/22/20 History Metoprolol Tartrate [Lopressor] 50 mg PO BID 12/29/18 07/22/20 History Insulin Aspart [NovoLOG Flexpen] 14 units SQ AC-TID 07/22/20 07/22/20 History Insulin NPH Human Isophane 52 units SQ HS 07/22/20 07/22/20 History [NovoLIN N] Allergies Allergy/AdvReac Type Severity Reaction Status Date / Time No Known Allergies Allergy Verified 07/22/20 18:52 Physical Exam Vitals: Vital Signs Temp Pulse Resp BP Pulse Ox 07/23/20 19:50 97.7 F 82 15 169/79 97 07/23/20 14:00 98.5 F 85 16 161/80 98 07/23/20 08:00 98.4 F 72 16 137/80 97 07/23/20 07:45 18 07/23/20 01:03 98.5 F 72 15 132/85 98 Intake and Output 07/23/20 07/23/20 07/23/20 06:59 14:59 22:59 Intake Total 200 200 472 Balance 200 200 472 Intake: Intake, IV Titration 200 Amount Sodium Chloride 0.9% 1, 200 000 ml @ 20 mls/hr IV . Q24H [facility] Rx#:[id number] Oral 200 472 Other: Voiding Method Toilet # Voids 3 2 GENERAL DESCRIPTION: Middle-aged male lying in bed, no distress. No tachypnea or accessory muscle of respiration use. HEENT: Shows Pallor , no scleral icterus. Oral mucous membrane is dry. No pharyngeal erythema or thrush NECK: Trachea central, no thyromegaly. LUNGS: Unlabored breathing. Clear to auscultation anteriorly. No wheeze or crackle. HEART: S1, S2, regular rate and rhythm. No loud murmur ABDOMEN: Soft, no tenderness , guarding or rigidity, no organomegaly EXTREMITIES: No edema of feet. Left index finger with a small wound from I&D with some surrounding swelling redness no drainage SKIN: No rash, no masses palpable. NEUROLOGICAL: The patient is awake, alert, oriented x3, mood and affect normal. Results CBC & Chem 7: 07/22/20 18:36 07/23/20 06:17 Labs: Abnormal Lab Results - Last 24 Hours (Table) 07/23/20 07/23/20 07/23/20 Range/Units 06:17 06:17 07:02 Glucose 247 H (70-110) mg/dL POC Glucose (mg/dL) 209 H (75-99) mg/dL Hemoglobin A1c 14.6 H (4.0-6.0) % 07/23/20 07/23/20 07/23/20 Range/Units 11:28 17:00 20:42 Glucose (70-110) mg/dL POC Glucose (mg/dL) 74 L 324 H 262 H (75-99) mg/dL Hemoglobin A1c (4.0-6.0) % Microbiology - Last 24 Hours (Table) 07/22/20 19:18 Gram Stain - Preliminary Finger - Left First Wound Culture - Preliminary 07/22/20 19:18 Anaerobic Culture - Preliminary Finger - Left First Assessment and Plan Assessment: 1- patient with a chronic nonhealing wound to the left index finger failing outpatient oral antibiotic therapy in this patient who did have evidence of an abscess that has been drained and evidence of ostial myelitis of the distal phalanx of the left index finger , patient will likely need IV antibiotic therapy on discharge with the choice of antibiotic depending upon the culture report (1) Osteomyelitis of finger of left hand Current Visit: No Status: Acute Code(s): M86.9 - OSTEOMYELITIS, UNSPECIFIED SNOMED Code(s): 61608445 Plan: 1-Vancomycin pharmacy to dose target trough of 15 while watching kidney function and Vanco trough closely 2-we will add Unasyn 3 g every 6 hours while waiting for the cultures to finalize We will follow on clinical condition and cultures to further adjust medication if needed Thank you for this consultation will follow this patient with you Time with Patient: Greater than 30
[2020-07-23] MEDS: CALCIUM CARBONATE 500 MG CHEWABLE PO PRN (23:48)
[2020-07-24] MEDS: HYDROcodone/APAP 5-325MG 1 EACH TAB PO PRN ×4 (02:10→21:37)
[2020-07-24] MEDS ORDERED: VANCOMYCIN TROUGH DUE 1 EACH MISC MISCELLANE ONE (04:00)
[2020-07-24] MEDS: AMPICILLIN-SULBACTAM 3 GM in SODIUM CHLORIDE 0.9% 100 ML IVPB SCH ×3 (05:00→17:05)
[2020-07-24 05:04] LABS: HCT 46.9 % (39.0-53.0); HGB 16.1 gm/dL (13.0-17.5); MCH 31.6 pg (25.0-35.0); MCHC 34.3 g/dL (31.0-37.0); MCV 92.1 fL (80.0-100.0); Mean Platelet Volume 7.1; Platelet Count 238 k/uL (150-450); RBC 5.09 m/uL (4.30-5.90); RDW 12.8 % (11.5-15.5); WBC 7.7 k/uL (3.8-10.6)
[2020-07-24] MEDS: VANCOMYCIN 1,500 MG in SODIUM CHLORIDE 0.9% 250 ML IVPB SCH (05:43)
[2020-07-24 07:12] LABS: Glucose,Whole Blood 180 mg/dL (75-99)
[2020-07-24] MEDS: guaiFENesin 600 MG TABLET.ER PO SCH ×2 (07:36→21:37)
[2020-07-24] MEDS: METOPROLOL TARTRATE 50 MG TAB PO SCH ×2 (07:36→21:37)
[2020-07-24] MEDS: DULoxetine HCL 60 MG CAPSULE.DR PO SCH (07:36)
[2020-07-24] MEDS: HEPARIN SODIUM,PORCINE 5,000 UNIT/ML 1 ML VIAL SQ SCH ×2 (07:36→17:05)
[2020-07-24] MEDS: INSULIN ASPART (NovoLOG) 100 UNIT/ML VIAL SQ SCH ×7 (07:36→21:38)
[2020-07-24] MEDS: NICOTINE 14MG/24HR PATCH TRANSDERM SCH (07:37)
[2020-07-24] MEDS: MORPHINE SULFATE 4 MG/ML SYRINGE IVP PRN ×2 (07:38→14:35)
[2020-07-24 09:41] LABS: African American GFR (CKD) 116.6 (60.0-200.0); Anion Gap 8.2 mmol/L (4.00-12.00); C Reactive Protein 1.1 mg/dL (0.0-0.8); Carbon Dioxide 24.8 mmol/L (21.6-31.8); Non-African American GFR(CKD) 100.6 (60.0-200.0); Potassium 3.9 mmol/L (3.5-5.5)
--- NOTE | 2020-07-24 10:00 | P.PN ---
Subjective Progress Note Date: 07/24/20 This is a 55 year-old male who is admitted for chronic infection to the left index finger. Patient is seen and evaluated at bedside today. Patient reports soreness in the left index finger, but he denies any new complaints today. Objective - Vital Signs Vital signs: Vital Signs Temp 97.7 F 07/24/20 07:51 Pulse 74 07/24/20 07:51 Resp 17 07/24/20 08:00 BP 141/91 07/24/20 07:51 Pulse Ox 96 07/24/20 07:51 Intake & Output 07/23/20 07/24/20 07/24/20 18:59 06:59 18:59 Intake Total 450 422 Balance 450 422 Intake: Intake, IV Titration 200 Amount Sodium Chloride 0.9% 1, 200 000 ml @ 20 mls/hr IV . Q24H [facility] Rx#:[id number] Oral 450 222 Other: Voiding Method Toilet Toilet Toilet # Voids 2 3 - Exam On exam patient is resting comfortably in bed in no acute distress. Patient is alert and oriented x3. Dressing is clean, dry and intact. Sensation intact. Neurovascular status and circulatory status are intact. - Labs CBC & Chem 7: 07/24/20 04:30 07/24/20 04:30 Labs: Abnormal Lab Results - Last 24 Hours (Table) 07/23/20 07/23/20 07/23/20 Range/Units 06:17 06:17 11:28 Glucose 247 H (70-110) mg/dL POC Glucose (mg/dL) 74 L (75-99) mg/dL Hemoglobin A1c 14.6 H (4.0-6.0) % C-Reactive Protein (0.0-0.8) mg/dL 07/23/20 07/23/20 07/24/20 Range/Units 17:00 20:42 04:30 Glucose 241 H (70-110) mg/dL POC Glucose (mg/dL) 324 H 262 H (75-99) mg/dL Hemoglobin A1c (4.0-6.0) % C-Reactive Protein 1.1 H (0.0-0.8) mg/dL 07/24/20 Range/Units 07:11 Glucose (70-110) mg/dL POC Glucose (mg/dL) 180 H (75-99) mg/dL Hemoglobin A1c (4.0-6.0) % C-Reactive Protein (0.0-0.8) mg/dL Microbiology - Last 24 Hours (Table) 07/22/20 19:18 Gram Stain - Preliminary Finger - Left First Wound Culture - Preliminary Assessment and Plan (1) Cellulitis of left index finger Current Visit: No Status: Acute Code(s): L03.012 - CELLULITIS OF LEFT FINGER SNOMED Code(s): 97080084 Plan: 1. Daily dressing changes. Wound care per infectious disease. 2. Continue IV antibiotics per infectious disease. 3. Appreciate input from internal medicine and infectious disease. 4. Cultures are pending. 5. No surgical intervention planned. Anticipate discharge in the next 24-48 hours.
[2020-07-24 11:01] VITALS: BMI 32.8
[2020-07-24 11:04] LABS: Erythrocyte Sedimentation Rate 20 mm/Hr (0-20)
[2020-07-24 11:54] LABS: Glucose,Whole Blood 142 mg/dL (75-99)
[2020-07-24] MEDS: VANCOMYCIN 1,750 MG in SODIUM CHLORIDE 0.9% 500 ML 500 ML IVPB SCH ×2 (14:35→21:41)
[2020-07-24 16:34] LABS: Glucose,Whole Blood 158 mg/dL (75-99)
[2020-07-24] MEDS: SODIUM CHLORIDE 0.9% 1,000 ML IV SCH (17:07)
--- NOTE | 2020-07-24 17:30 | PN ---
PROGRESS NOTE DATE OF SERVICE: 07/24/2020 REASON FOR FOLLOWUP: Left index finger osteomyelitis. INTERVAL HISTORY: The patient is currently afebrile. The patient complaining of more pain to the left index finger. Apparently there was more pus drained out this morning by the Ortho. The patient denies any chest pain or shortness of breath or cough. No abdominal pain or diarrhea. PHYSICAL EXAMINATION: Blood pressure 142/77, pulse of 58, temperature 97.5. He is 98% on room air. General description: The patient is a middle-aged male up in the bed in no distress. Respiratory system: Unlabored breathing, clear to auscultation anteriorly. Heart S1, S2. Regular rate and rhythm. Abdomen soft, no tenderness. LABS: Wound cultures currently pending. DIAGNOSTIC IMPRESSION AND PLAN: Patient with left index finger nonhealing wound with underlying osteomyelitis on the basis of the abnormal x-ray, status post drainage of this abscess. Will wait for the culture to finalize to determine discharge antibiotics and continue supportive care. MMODL / IJN: [id number] /
--- NOTE | 2020-07-24 19:03 | P.PN ---
Subjective Progress Note Date: 07/24/20 (Delayed charting seen on 11:30) Principal diagnosis: Left finger pain Patient is a 55-year-old male with a history of insulin-dependent diabetes mellitus that is poorly controlled, hypertension, and tobacco abuse who presented from Dr. Lee office urinary concerns for left finger osteomyelitis. He had finger I&D in the office in x-ray obtained. He was started on vancomycin and Unasyn. Cultures have been obtained. Infectious disease is following. Patient seen and examined at bedside. He denies any nausea, vomiting, or shortness of breath. Pain is currently well controlled. General: Nontoxic, no distress, appears at stated age Derm: warm, dry Head: atraumatic, normocephalic, symmetric Eyes: EOMI, no lid lag, anicteric sclera Mouth: no lip lesion, mucus membranes moist Cardiovascular: S1S2 reg, no murmur, positive posterior tibial pulse bilateral, Lungs: CTA bilateral, no rhonchi, no rales , no accessory muscle use Abdominal: soft, nontender to palpation, no guarding, no appreciable organomegaly Ext: Left second digit dressing removed, appears to have some ecchymoses, still of fluctuance on the posterior aspect of the distal tip, washed with sterile saline and continued to have purulent drainage from the hole at the proximal end of the nail bed no gross muscle atrophy, no edema, no contractures Neuro: CN II-XI grossly intact, no focal neuro deficits Psych: Alert, oriented, appropriate affect Left second digit osteomyelitis -Infectious disease following. Currently on vancomycin and Unasyn -Change dressings daily -Orthopedic recommendations -Pain control -Monitor for signs of sepsis Diabetes mellitus 2 with hyperglycemia -Insulin sliding scale, follow blood sugars, patient is only on NPH 54 units at night. We'll continue this -Outpatient follow-up with his plateman -Hemoglobin A1c 14.6 -CRP normal at 1.1 Hypertension, controlled -Follow blood pressures -Continue with metoprolol Tobacco abuse -Nicotine replacement -Cessation DVT prophylaxis: Heparin Discussed with: Patient, nursing Anticipated discharge: 4-[address]: home health and IV antibiotics A total of 25 minutes was spent on the care of this complex patient more than 50% of the time was spent in counseling and care coordination. Objective - Vital Signs Vital signs: Vital Signs Temp 97.5 F L 07/24/20 14:00 Pulse 68 07/24/20 14:00 Resp 18 07/24/20 14:00 BP 148/77 07/24/20 14:00 Pulse Ox 98 07/24/20 14:00 Intake & Output 07/23/20 07/24/20 07/24/20 18:59 06:59 18:59 Intake Total 450 422 Balance 450 422 Weight 95.254 kg Intake: Intake, IV Titration 200 Amount Sodium Chloride 0.9% 1, 200 000 ml @ 20 mls/hr IV . Q24H [facility] Rx#:[id number] Oral 450 222 Other: Voiding Method Toilet Toilet Toilet # Voids 2 3 2 - Labs CBC & Chem 7: 07/24/20 04:30 07/24/20 04:30 Labs: Abnormal Lab Results - Last 24 Hours (Table) 07/23/20 07/23/20 07/23/20 Range/Units 06:17 06:17 20:42 Glucose 247 H (70-110) mg/dL POC Glucose (mg/dL) 262 H (75-99) mg/dL Hemoglobin A1c 14.6 H (4.0-6.0) % C-Reactive Protein (0.0-0.8) mg/dL 07/24/20 07/24/20 07/24/20 Range/Units 04:30 07:11 11:52 Glucose 241 H (70-110) mg/dL POC Glucose (mg/dL) 180 H 142 H (75-99) mg/dL Hemoglobin A1c (4.0-6.0) % C-Reactive Protein 1.1 H (0.0-0.8) mg/dL 07/24/20 Range/Units 16:33 Glucose (70-110) mg/dL POC Glucose (mg/dL) 158 H (75-99) mg/dL Hemoglobin A1c (4.0-6.0) % C-Reactive Protein (0.0-0.8) mg/dL Microbiology - Last 24 Hours (Table) 07/22/20 19:18 Gram Stain - Final Finger - Left First Wound Culture - Final
[2020-07-24 20:54] LABS: Glucose,Whole Blood 216 mg/dL (75-99)
[2020-07-24] MEDS: INSULIN NPH 300 UNIT/3 ML VIAL SQ SCH (21:40)
[2020-07-25] MEDS: HEPARIN SODIUM,PORCINE 5,000 UNIT/ML 1 ML VIAL SQ SCH ×4 (00:44→23:23)
[2020-07-25] MEDS: AMPICILLIN-SULBACTAM 3 GM in SODIUM CHLORIDE 0.9% 100 ML IVPB SCH ×5 (00:44→23:23)
[2020-07-25] MEDS: MORPHINE SULFATE 4 MG/ML SYRINGE IVP PRN ×2 (00:52→17:12)
[2020-07-25 01:11] LABS: Glucose,Whole Blood 205 mg/dL (75-99)
[2020-07-25 05:57] LABS: Glucose,Whole Blood 74 mg/dL (75-99)
[2020-07-25] MEDS: VANCOMYCIN 1,750 MG in SODIUM CHLORIDE 0.9% 500 ML 500 ML IVPB SCH ×3 (05:57→21:01)
[2020-07-25 06:31] LABS: HCT 46.3 % (39.0-53.0); HGB 15.7 gm/dL (13.0-17.5); MCH 31.1 pg (25.0-35.0); MCHC 33.9 g/dL (31.0-37.0); MCV 91.9 fL (80.0-100.0); Platelet Count 211 k/uL (150-450); RBC 5.04 m/uL (4.30-5.90); RDW 12.3 % (11.5-15.5); WBC 7.7 k/uL (3.8-10.6)
[2020-07-25 06:50] LABS: Glucose,Whole Blood 176 mg/dL (75-99)
[2020-07-25] MEDS: guaiFENesin 600 MG TABLET.ER PO SCH ×2 (07:18→21:02)
[2020-07-25] MEDS: HYDROcodone/APAP 5-325MG 1 EACH TAB PO PRN ×3 (07:18→21:02)
[2020-07-25] MEDS: METOPROLOL TARTRATE 50 MG TAB PO SCH ×2 (07:18→21:02)
[2020-07-25] MEDS: NICOTINE 14MG/24HR PATCH TRANSDERM SCH (07:18)
[2020-07-25] MEDS: DULoxetine HCL 60 MG CAPSULE.DR PO SCH (07:18)
[2020-07-25] MEDS: INSULIN ASPART (NovoLOG) 100 UNIT/ML VIAL SQ SCH ×7 (07:19→21:01)
[2020-07-25 09:57] LABS: African American GFR (CKD) 116.6 (60.0-200.0); Anion Gap 6.7 mmol/L (4.00-12.00); BUN/Creat Ratio 13.75 Ratio (12.00-20.00); Calcium 8.8 mg/dL (8.7-10.3); Carbon Dioxide 27.3 mmol/L (21.6-31.8); Non-African American GFR(CKD) 100.6 (60.0-200.0); Potassium 3.8 mmol/L (3.5-5.5)
--- NOTE | 2020-07-25 10:23 | P.PN ---
Subjective Progress Note Date: 07/25/20 This is a 55 year-old male who is admitted for chronic infection to the left index finger. Patient is seen and evaluated at bedside today. Patient reports improvement in pain today. Patient states that there was a small amount of purulent drainage from the left index finger yesterday after pushing on it. Patient denies any new complaints today. Objective - Vital Signs Vital signs: Vital Signs Temp 97.6 F 07/25/20 07:52 Pulse 64 07/25/20 07:52 Resp 18 07/25/20 07:52 BP 142/63 07/25/20 07:52 Pulse Ox 98 07/25/20 07:52 Intake & Output 07/24/20 07/25/20 07/25/20 18:59 06:59 18:59 Intake Total 600 Balance 600 Weight 95.254 kg Intake: Intake, IV Titration 600 Amount Ampicillin-Sulbactam 3 gm 100 In Sodium Chloride 0.9% 100 ml @ 200 mls/hr IVPB Q6HR [facility] Rx#:[id number] Vancomycin 1,750 mg In 500 Sodium Chloride 0.9% 500 ml 500 ml @ 167 mls/hr IVPB Q8H [facility] Rx#: [id number] Other: Voiding Method Toilet Toilet Toilet # Voids 2 1 - Exam On exam patient is well-appearing and resting comfortably in bed in no acute distress. Patient is alert and oriented x3. Dressing is removed. No active drainage. Mild swelling over the distal aspect of the left index finger. Minimal erythema. Patient is able to actively flex and extend the left index finger with some limitation secondary to pain and swelling. Full range of motion of the rest of the left hand. Sensation intact. Neurovascular status and circulatory status are intact. - Labs CBC & Chem 7: 07/25/20 05:30 07/25/20 05:30 Labs: Abnormal Lab Results - Last 24 Hours (Table) 07/24/20 07/24/20 07/24/20 Range/Units 11:52 16:33 20:53 Glucose (70-110) mg/dL POC Glucose (mg/dL) 142 H 158 H 216 H (75-99) mg/dL 07/25/20 07/25/20 07/25/20 Range/Units 01:09 05:30 05:56 Glucose 61 L (70-110) mg/dL POC Glucose (mg/dL) 205 H 74 L (75-99) mg/dL 07/25/20 Range/Units 06:49 Glucose (70-110) mg/dL POC Glucose (mg/dL) 176 H (75-99) mg/dL Microbiology - Last 24 Hours (Table) 07/22/20 19:18 Gram Stain - Final Finger - Left First Wound Culture - Final Assessment and Plan (1) Cellulitis of left index finger Current Visit: No Status: Acute Code(s): L03.012 - CELLULITIS OF LEFT FINGER SNOMED Code(s): 44230545 Plan: 1. Daily dressing changes. Wound care per infectious disease. 2. Patient is afebrile with a normal white count. 3. Appreciate input from internal medicine and infectious disease. 4. Continue IV antibiotics per infectious disease. Cultures are pending. Gram stain showing few gram positive cocci. 5. No surgical intervention planned. Anticipate discharge in the next 24-48 hours.
[2020-07-25 11:54] LABS: Glucose,Whole Blood 124 mg/dL (75-99)
[2020-07-25] MEDS: NEOMYCIN-BACITRACIN-POLY OINT 14 GM TUBE TOPICAL SCH (12:16)
--- NOTE | 2020-07-25 12:35 | P.PN ---
Subjective Progress Note Date: 07/25/20 Principal diagnosis: Left finger pain Patient is a 55-year-old male with a history of insulin-dependent diabetes mellitus that is poorly controlled, hypertension, and tobacco abuse who presented from Dr. Lee office urinary concerns for left finger osteomyelitis. He had finger I&D in the office in x-ray obtained. He was started on vancomycin and Unasyn. Cultures have been obtained. Infectious disease is following. Patient seen and examined at bedside. He denies any nausea, vomiting, or shortness of breath. Pain is currently well controlled. General: Nontoxic, no distress, appears at stated age Derm: warm, dry Head: atraumatic, normocephalic, symmetric Eyes: EOMI, no lid lag, anicteric sclera Mouth: no lip lesion, mucus membranes moist Cardiovascular: S1S2 reg, no murmur, positive posterior tibial pulse bilateral, Lungs: CTA bilateral, no rhonchi, no rales , no accessory muscle use Abdominal: soft, nontender to palpation, no guarding, no appreciable or ganomegaly Ext: Left second digit dressing removed, appears to have some ecchymoses, washed with sterile saline and no purulent drainage from the hole at the proximal end of the nail bed, no gross muscle atrophy, no edema, no contractures Neuro: CN II-XI grossly intact, no focal neuro deficits Psych: Alert, oriented, appropriate affect Left second digit osteomyelitis -Infectious disease following. Currently on vancomycin and Unasyn -Change dressings daily -Orthopedic recommendations -Pain control -Monitor for signs of sepsis -Aerobic wound culture negative, anaerobic wound culture pending. Diabetes mellitus 2 with hyperglycemia -Insulin sliding scale, follow blood sugars, - patient was only on NPH 54 units at night. 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 Objective - Vital Signs Vital signs: Vital Signs Temp 97.6 F 07/25/20 07:52 Pulse 64 07/25/20 07:52 Resp 18 07/25/20 07:52 BP 142/63 07/25/20 07:52 Pulse Ox 98 07/25/20 07:52 Intake & Output 07/24/20 07/25/20 07/25/20 18:59 06:59 18:59 Intake Total 600 Balance 600 Weight 95.254 kg Intake: Intake, IV Titration 600 Amount Ampicillin-Sulbactam 3 gm 100 In Sodium Chloride 0.9% 100 ml @ 200 mls/hr IVPB Q6HR KENYETTA Rx#:[id number] Vancomycin 1,750 mg In 500 Sodium Chloride 0.9% 500 ml 500 ml @ 167 mls/hr IVPB Q8H K[facility]ETTA Rx#: [id number] Other: Voiding Method Toilet Toilet Toilet # Voids 2 1 - Labs CBC & Chem 7: 07/25/20 05:30 07/25/20 05:30 Labs: Abnormal Lab Results - Last 24 Hours (Table) 07/24/20 07/24/20 07/25/20 Range/Units 16:33 20:53 01:09 Glucose (70-110) mg/dL POC Glucose (mg/dL) 158 H 216 H 205 H (75-99) mg/dL 07/25/20 07/25/20 07/25/20 Range/Units 05:30 05:56 06:49 Glucose 61 L (70-110) mg/dL POC Glucose (mg/dL) 74 L 176 H (75-99) mg/dL 07/25/20 Range/Units 11:53 Glucose (70-110) mg/dL POC Glucose (mg/dL) 124 H (75-99) mg/dL Microbiology - Last 24 Hours (Table) 07/22/20 19:18 Gram Stain - Final Finger - Left First Wound Culture - Final
[2020-07-25 16:53] LABS: Glucose,Whole Blood 114 mg/dL (75-99)
[2020-07-25] MEDS: SODIUM CHLORIDE 0.9% 1,000 ML IV SCH (17:12)
[2020-07-25 20:23] LABS: Glucose,Whole Blood 184 mg/dL (75-99)
[2020-07-25] MEDS ORDERED: INSULIN DETEMIR (LEVEMIR) 100 UNIT/ML SYR SQ SCH (21:00)
--- NOTE | 2020-07-25 23:11 | PN ---
PROGRESS NOTE DATE OF SERVICE: 07/25/2020 REASON FOR FOLLOWUP: Left index finger osteomyelitis. INTERVAL HISTORY: The patient is currently afebrile. The patient is feeling better today. Overall pain and discomfort has improved. ( ) purulent drainage. No chest pain, shortness of breath or cough. No abdominal pain, no diarrhea. PHYSICAL EXAMINATION: Blood pressure 154/85 with a pulse of 74, temperature 97.7. He is 97% on room air. General description is a middle-aged male up in the bed in no distress. Respiratory system: Unlabored breathing, clear to auscultation anteriorly. Heart S1, S2. Regular rate and rhythm. Abdomen soft, no tenderness. Left index finger is dressed up. No obvious drainage on the dressing. LABS: BUN of 11, creatinine 0.8. Cultures so far negative. Gram stain did show some gram- positive cocci. DIAGNOSTIC IMPRESSION AND PLAN: Patient with left index finger chronic nonhealing wound with concern for underlying osteomyelitis on the basis of abnormal x-ray findings. Patient is currently covered with Unasyn and vancomycin. With the culture negative for resistant pathogen, vancomycin will be discontinued. Will wait for the culture to finalize. Possible placement of PICC for line outpatient antibiotic management on Monday and continue supportive care. MMODL / IJN: [id number] /
[2020-07-26] MEDS: MORPHINE SULFATE 4 MG/ML SYRINGE IVP PRN (00:42)
[2020-07-26] MEDS: CALCIUM CARBONATE 500 MG CHEWABLE PO PRN (00:45)
[2020-07-26 02:27] LABS: Glucose,Whole Blood 241 mg/dL (75-99)
[2020-07-26] MEDS ORDERED: VANCOMYCIN TROUGH DUE 1 EACH MISC MISCELLANE ONE (05:00)
[2020-07-26] MEDS: AMPICILLIN-SULBACTAM 3 GM in SODIUM CHLORIDE 0.9% 100 ML IVPB SCH ×4 (05:14→23:23)
[2020-07-26 06:54] LABS: Glucose,Whole Blood 246 mg/dL (75-99)
[2020-07-26] MEDS: METOPROLOL TARTRATE 50 MG TAB PO SCH ×2 (07:07→20:51)
[2020-07-26] MEDS: DULoxetine HCL 60 MG CAPSULE.DR PO SCH (07:07)
[2020-07-26] MEDS: guaiFENesin 600 MG TABLET.ER PO SCH ×2 (07:07→20:51)
[2020-07-26] MEDS: HYDROcodone/APAP 5-325MG 1 EACH TAB PO PRN ×3 (07:07→22:27)
[2020-07-26] MEDS: NICOTINE 14MG/24HR PATCH TRANSDERM SCH (07:08)
[2020-07-26] MEDS: HEPARIN SODIUM,PORCINE 5,000 UNIT/ML 1 ML VIAL SQ SCH ×3 (07:08→22:25)
[2020-07-26] MEDS: INSULIN ASPART (NovoLOG) 100 UNIT/ML VIAL SQ SCH ×7 (07:08→20:51)
[2020-07-26] MEDS: NEOMYCIN-BACITRACIN-POLY OINT 14 GM TUBE TOPICAL SCH (07:11)
[2020-07-26 10:01] LABS: Non-African American GFR(CKD) 95.8 (60.0-200.0)
--- NOTE | 2020-07-26 10:06 | P.PN ---
Subjective Progress Note Date: 07/26/20 This is a 55 year-old male who is admitted for chronic infection to the left index finger. Patient is seen and evaluated at bedside today. Patient reports improvement in pain today. Patient denies any drainage from the left index finger. Patient denies any new complaints today. Objective - Vital Signs Vital signs: Vital Signs Temp 97.8 F 07/26/20 08:00 Pulse 63 07/26/20 08:00 Resp 18 07/26/20 08:00 BP 139/84 07/26/20 08:00 Pulse Ox 97 07/26/20 08:00 Intake & Output 07/25/20 07/26/20 07/26/20 18:59 06:59 18:59 Other: Voiding Method Toilet Toilet Toilet # Voids 2 2 - Exam On exam patient is well-appearing and resting comfortably in bed in no acute distress. Patient is alert and oriented x3. Dressing is removed. No active drain age. Mild swelling over the distal aspect of the left index finger. Minimal erythema. Patient is able to actively flex and extend the left index finger. Sensation intact. Neurovascular status and circulatory status are intact. - Labs CBC & Chem 7: 07/25/20 05:30 07/26/20 05:27 Labs: Abnormal Lab Results - Last 24 Hours (Table) 07/25/20 07/25/20 07/25/20 Range/Units 11:53 16:52 20:22 POC Glucose (mg/dL) 124 H 114 H 184 H (75-99) mg/dL 07/26/20 07/26/20 Range/Units 02:25 06:53 POC Glucose (mg/dL) 241 H 246 H (75-99) mg/dL Assessment and Plan (1) Cellulitis of left index finger Current Visit: No Status: Acute Code(s): L03.012 - CELLULITIS OF LEFT FINGER SNOMED Code(s): 20302697 Plan: 1. Daily dressing changes. Wound care per infectious disease. 2. Patient is afebrile. 3. Appreciate input from internal medicine and infectious disease. 4. Continue IV antibiotics per infectious disease. Cultures are pending. Gram stain showing few gram positive cocci. 5. No surgical intervention planned. Patient is awaiting PICC line placement. Anticipate discharge in the next 24-48 hours.
[2020-07-26 11:15] LABS: Glucose,Whole Blood 129 mg/dL (75-99)
--- NOTE | 2020-07-26 12:46 | P.PN ---
Subjective Progress Note Date: 07/26/20 Principal diagnosis: Left finger pain Patient is a 55-year-old male with a history of insulin-dependent diabetes mellitus that is poorly controlled, hypertension, and tobacco abuse who presented from Dr. Lee office urinary concerns for left finger osteomyelitis. He had finger I&D in the office in x-ray obtained. He was started on vancomycin and Unasyn. Cultures have been obtained and negative for aerobic bacteria. Infectious disease is following. Patient seen and examined at bedside. Doing well, finger feels numb, no nausea, + BM yesterday General: Non toxic, no distress, appears at stated age Derm: warm, dry Head: atraumatic, normocephalic, symmetric Eyes: EOMI, no lid lag, anicteric sclera Mouth: no lip lesion, mucus membranes moist Cardiovascular: S1S2 reg, no murmur, positive posterior tibial pulse bilateral, Lungs: CTA bilateral, no rhonchi, no rales , no accessory muscle use Abdominal: soft, nontender to palpation, no guarding, no appreciable orga nomegaly Ext: Left second digit dressing removed, appears to have some ecchymoses, no drainage note, scab in place, no gross muscle atrophy, no edema, no contractures Neuro: CN II-XI grossly intact, no focal neuro deficits Psych: Alert, oriented, appropriate affect Left second digit osteomyelitis -Infectious disease following. Currently on Unasyn, aerobic culture negative -Change dressings daily -Orthopedic recommendations -Pain control - likely home in AM -Aerobic wound culture negative, anaerobic wound culture pending. Diabetes mellitus 2 with hyperglycemia -Insulin sliding scale, follow blood sugars, - fixed dose novlolg decreased to 12 units - patient was on NPH 54 units at night. 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 Objective - Vital Signs Vital signs: Vital Signs Temp 97.8 F 07/26/20 08:00 Pulse 63 07/26/20 08:00 Resp 18 07/26/20 08:00 BP 139/84 07/26/20 08:00 Pulse Ox 97 07/26/20 08:00 Intake & Output 07/25/20 07/26/20 07/26/20 18:59 06:59 18:59 Other: Voiding Method Toilet Toilet Toilet # Voids 2 2 - Labs CBC & Chem 7: 07/25/20 05:30 07/26/20 05:27 Labs: Abnormal Lab Results - Last 24 Hours (Table) 07/25/20 07/25/20 07/26/20 Range/Units 16:52 20:22 02:25 POC Glucose (mg/dL) 114 H 184 H 241 H (75-99) mg/dL 07/26/20 07/26/20 Range/Units 06:53 11:14 POC Glucose (mg/dL) 246 H 129 H (75-99) mg/dL
[2020-07-26 16:46] LABS: Glucose,Whole Blood 160 mg/dL (75-99)
[2020-07-26] MEDS: SODIUM CHLORIDE 0.9% 1,000 ML IV SCH (17:00)
[2020-07-26 20:15] LABS: Glucose,Whole Blood 334 mg/dL (75-99)
[2020-07-26] MEDS ORDERED: PRAMIPEXOLE 0.125 MG TAB PO SCH (21:00)
[2020-07-26] MEDS ORDERED: INSULIN DETEMIR (LEVEMIR) 100 UNIT/ML SYR SQ SCH (21:00)
--- NOTE | 2020-07-26 22:56 | PN ---
PROGRESS NOTE DATE OF SERVICE: 07/26/2020 REASON FOR FOLLOWUP: Left index finger osteomyelitis. INTERVAL HISTORY: The patient is currently afebrile. The patient is feeling pain. Overall pain and discomfort to the left index finger has decreased. No chest pain or cough. No abdominal pain. No diarrhea. PHYSICAL EXAMINATION: Blood pressure 139/84 with a pulse of 63. Temperature 97.9. He is 97% on room air. General description is a middle-aged male lying in bed in no distress. Respiratory system: Unlabored breathing, clear to auscultation anteriorly. Heart S1, S2. Regular rate and rhythm. Abdomen soft, no tenderness. Left index finger overall swelling and redness has improved. LABS: Creatinine 0.9. Culture has been negative so far. DIAGNOSTIC IMPRESSION AND PLAN: Patient with left index finger osteomyelitis with chronic infection, culture shows composite culture has been negative. On Unasyn. We will transition to Rocephin 2 grams daily. PICC line in the morning. Once antibiotic clinically to go home from ID standpoint and close outpatient followup. MMODL / IJN: [id number] /
[2020-07-27 04:44] VITALS: BP 132/81; PULSE 66; RESP 18; TEMP 98
[2020-07-27 04:49] LABS: Glucose,Whole Blood 224 mg/dL (75-99)
[2020-07-27] MEDS: AMPICILLIN-SULBACTAM 3 GM in SODIUM CHLORIDE 0.9% 100 ML IVPB SCH (05:05)
[2020-07-27 06:57] LABS: Glucose,Whole Blood 233 mg/dL (75-99)
[2020-07-27] MEDS: HYDROcodone/APAP 5-325MG 1 EACH TAB PO PRN (07:24)
[2020-07-27] MEDS: NICOTINE 14MG/24HR PATCH TRANSDERM SCH (07:24)
[2020-07-27] MEDS: DULoxetine HCL 60 MG CAPSULE.DR PO SCH (07:24)
[2020-07-27] MEDS: METOPROLOL TARTRATE 50 MG TAB PO SCH (07:24)
[2020-07-27] MEDS: HEPARIN SODIUM,PORCINE 5,000 UNIT/ML 1 ML VIAL SQ SCH (07:24)
[2020-07-27] MEDS: guaiFENesin 600 MG TABLET.ER PO SCH (07:24)
[2020-07-27] MEDS: INSULIN ASPART (NovoLOG) 100 UNIT/ML VIAL SQ SCH ×4 (07:25→12:11)
[2020-07-27] MEDS: NEOMYCIN-BACITRACIN-POLY OINT 14 GM TUBE TOPICAL SCH (07:26)
[2020-07-27] MEDS: MORPHINE SULFATE 4 MG/ML SYRINGE IVP PRN (09:17)
[2020-07-27 10:07] LABS: African American GFR (CKD) 116.6 (60.0-200.0); BUN/Creat Ratio 13.75 Ratio (12.00-20.00); C Reactive Protein 0.6 mg/dL (0.0-0.8); Magnesium 1.9 mg/dL (1.5-2.4); Non-African American GFR(CKD) 100.6 (60.0-200.0); Potassium 4.2 mmol/L (3.5-5.5)
--- NOTE | 2020-07-27 11:08 | P.DS ---
Providers Date of admission: 07/22/20 17:52 Expected date of discharge: 07/27/20 Attending physician: Williams Lee Consults: 07/22/20 17:12 Consult Physician Routine Consulting Provider: Paulino Pineda Consult Reason/Comments: Eval LIF infection, osteomyelitis, Abx recommendations and wound care. Do you want consulting provider notified?: Yes 07/22/20 17:13 Consult Physician Routine Consulting Provider: Marcelina Caicedo Consult Reason/Comments: Medical management Do you want consulting provider notified?: Yes [facility] Course: This patient is a 55- year old male with a past medical history of insulin- dependent diabetes mellitus, hypertension, and tobacco abuse that was directed admitted to [facility] on 07/22/20 from [facility] due to a chronic infection of the left index finger. X-rays in the office showed osteomyelitis of the distal phalanx of the left index finger. Debridement was performed in the office, with purulent material drained from the finger, which was cultured. Patient was admitted under the care of Dr. Lee, with consults placed to infectious disease and internal medicine. Per Dr. Pineda, patient is scheduled to have a PICC line placed today. Patient is seen and examined bedside this morning, Dr. Caicedo is also bedside. Patient states overall, he is feeling great. His finger pain has continued to improve. He is not experiencing any drainage from the finger, although he is keeping the area covered with a clean bandage. He is tolerating his diet well. He is voiding without issues. He denies chest pain, shortness of breath, nausea, vomiting, fevers, chills. Vital signs stable. On examination, patient is sitting up in bed and appears comfortable in no acute distress. Patient is alert and oriented x3. Dressing is removed from the left index finger. No active drainage. Mild swelling over the distal aspect of the left index finger. Minimal erythema. Patient is able to actively flex and extend the left index finger. Sensation intact. Neurovascular status and circulatory status are intact. Patient is discharged home today after he receives his PICC line, pending internal medicine and infectious disease clearance. Please she med rec for accurate list of discharge medications. Patient Condition at Discharge: Stable Plan - Discharge Summary New Discharge Prescriptions: New Insulin Detemir [Levemir Flextouch] 40 units SQ HS #1 box guaiFENesin [Mucinex] 600 mg PO Q12HR tablet.er Continue Metoprolol Tartrate [Lopressor] 50 mg PO BID DULoxetine HCL [Cymbalta] 60 mg PO DAILY Aspirin EC [Ecotrin Low Dose] 81 mg PO DAILY Changed Insulin Aspart [NovoLOG Flexpen] 14 units SQ DIRECTED #0 Discontinued Insulin NPH Human Isophane [NovoLIN N] 52 units SQ HS Discharge Medication List Aspirin EC [Ecotrin Low Dose] 81 mg PO DAILY 12/29/18 [History] DULoxetine HCL [Cymbalta] 60 mg PO DAILY 12/29/18 [History] Metoprolol Tartrate [Lopressor] 50 mg PO BID 12/29/18 [History] Insulin Detemir [Levemir Flextouch] 40 units SQ HS #1 box 07/25/20 [Rx] Insulin Aspart [NovoLOG Flexpen] 14 units SQ DIRECTED #0 07/27/20 [Rx] guaiFENesin [Mucinex] 600 mg PO Q12HR tablet.er 07/27/20 [Rx] Follow up Appointment(s)/Referral(s): Nonstaff,Physician [REFERRING] - 1 Week (Follow-up with our primary care physician in 2-3 days.) Paulino Pineda MD [STAFF PHYSICIAN] - 2 Weeks Dany Lee DO [Doctor of Osteopathic Medicine] - 1 Week Activity/Diet/Wound Care/Special Instructions: Diet: Carb consistent Special Instructions: Novolog: Breakfast 12 units Lunch 12 units Dinner 14 units Make a list of your blood sugars and bring it to your next appointment with your Primary care physician/ mapping analyst Please go to [email or web address] to find a local primary care physician. Discharge Disposition: HOME SELF-CARE
--- NOTE | 2020-07-27 11:54 | P.PN ---
<Klever Edwards - Last Filed: 07/27/20 12:58> Subjective Progress Note Date: 07/27/20 Principal diagnosis: Chief Complaint Osteomyelitis left index finger History of presenting illness Patient is 55-year-old male with a past medical history of hypertension, and poorly controlled insulin-dependent diabetes mellitus. He presented to [facility] on 07/22/20 and is currently admitted under orthopedic surgery secondary to osteomyelitis of his left index finger. Patient has reportedly been undergoing outpatient treatment over the past 2 months for infection, swelling, and pain in his left index finger receiving multiple cours es of antibiotic treatment. He failed outpatient treatment and was seen in orthopedic office yesterday where an x-ray was completed revealing osteomyelitis to the distal phalanx of the left index finger. Debridement was performed and cultures were obtained. 07/27/20: Patient was seen and evaluated at the bedside. He was resting comfortably with no complaints of pain or discomfort at this time. Dressing to left index finger was removed revealing minimal swelling and inflammation surrounding fingernail and distal portion of his left index finger. Full range of motion and sensation intact. He reports feeling some mild numbess to his left index finger over the weekend, but reports this has since significantly improved and pain is currently controlled. Patient denies having any other complaints including fever, chills, diaphoresis, chest pain, or shortness of breath. Plan for PICC line placement today followed by discharge by ortho for continued IV antibiotics on outpatient basis. Physical Examination: General: non toxic, no distress, appears at stated age Derm: generally warm and dry with pink undertones. Dressing to left index finger was removed revealing minimal swelling and inflammation surrounding fingernail and distal portion of his index finger. Full range of motion and sensation in tact. Head: atraumatic, normocephalic, symmetric Eyes: EOMI, no lid lag, anicteric sclera Mouth: no lip lesion, mucus membranes moist Cardiovascular: S1S2 reg, no murmur, positive posterior tibial pulse bilateral, Lungs: Respirations even, regular, and unlabored on room air with no accessory muscle use. Lungs CTA bilaterally. No wheezes, rhonchi, or crackles present. (Pt does have a reported chronic cough resulting from longstanding hx of smoking). Abdominal: soft, nontender to palpation, no guarding, no appreciable organomegaly Ext: no gross muscle atrophy, no edema, no contractures Neuro: CN II-XII grossly intact, no focal neuro deficits Psych: Alert, oriented, appropriate affect Objective - Vital Signs Vital signs: Vital Signs Temp 98.0 F 07/27/20 02:15 Pulse 66 07/27/20 07:31 Resp 18 07/27/20 07:31 BP 132/81 07/27/20 02:15 Pulse Ox 98 07/27/20 02:15 Intake & Output 07/26/20 07/27/20 07/27/20 18:59 06:59 18:59 Intake Total 980 Balance 980 Intake: Oral 980 Other: Voiding Method Toilet Toilet Toilet # Voids 1 # Bowel Movements 1 - Labs CBC & Chem 7: 07/25/20 05:30 07/27/20 05:17 Labs: Abnormal Lab Results - Last 24 Hours (Table) 07/26/20 07/26/20 07/27/20 Range/Units 16:45 20:13 04:47 ESR (0-20) mm/Hr Glucose (70-110) mg/dL POC Glucose (mg/dL) 160 H 334 H 224 H (75-99) mg/dL 07/27/20 07/27/20 07/27/20 Range/Units 05:17 05:17 06:56 ESR 21 H (0-20) mm/Hr Glucose 234 H (70-110) mg/dL POC Glucose (mg/dL) 233 H (75-99) mg/dL Assessment and Plan Plan: Osteomyelitis of left index finger -Dressing to left index finger was removed revealing minimal swelling and inflammation surrounding fingernail and distal portion of his finger. -Full range of motion and sensation intact. -Plan for PICC line placement today followed by discharge home on IV antibiotics. -Antibiotics changed by ID from unasyn to Rocephin. Insulin-dependent Diabetes mellitus type II with Hyperglycemia -A1c 14.6 -Patient placed on Levemir 40 units nightly and to continue with Humalog 12 units with breakfast, 12 units with lunch, and 14 units with dinner. 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 Hypertension Continue daily medication management.- Tobacco dependence -Counseled on importance of tobacco cessation and risks of continued use. -Nicotine patch CODE STATUS Full code DVT prophylaxis: Heparin Thank you for allowing us to participate in the care of this patient. Do not hesitate to contact us with questions. Someone can be reached from the [facility] hospitalist group at all hours of the day at [phone]. <SaschaMarcelina sandoval - Last Filed: 07/27/20 13:27> Objective - Vital Signs Vital signs: Vital Signs Temp 98.0 F 07/27/20 02:15 Pulse 66 07/27/20 07:31 Resp 18 07/27/20 07:31 BP 132/81 07/27/20 02:15 Pulse Ox 98 07/27/20 02:15 Intake & Output 07/26/20 07/27/20 07/27/20 18:59 06:59 18:59 Intake Total 980 Balance 980 Intake: Oral 980 Other: Voiding Method Toilet Toilet Toilet # Voids 1 # Bowel Movements 1 - Labs CBC & Chem 7: 07/25/20 05:30 07/27/20 05:17 Labs: Abnormal Lab Results - Last 24 Hours (Table) 07/26/20 07/26/20 07/27/20 Range/Units 16:45 20:13 04:47 ESR (0-20) mm/Hr Glucose (70-110) mg/dL POC Glucose (mg/dL) 160 H 334 H 224 H (75-99) mg/dL 07/27/20 07/27/20 07/27/20 Range/Units 05:17 05:17 06:56 ESR 21 H (0-20) mm/Hr Glucose 234 H (70-110) mg/dL POC Glucose (mg/dL) 233 H (75-99) mg/dL 07/27/20 Range/Units 11:53 ESR (0-20) mm/Hr Glucose (70-110) mg/dL POC Glucose (mg/dL) 364 H (75-99) mg/dL Assessment and Plan Plan: Patient seen and examined independently. Patient was also seen by Klever Edwards NP and case was discussed. I am in agreement with subjective, physical exam, assessment and plan as written above and amended below. Pain is minimal. Will take levemire 40 at night Novolog 12,12,14. General: non toxic, no distress, appears at stated age Derm: warm, dry Head: atraumatic, normocephalic, symmetric Eyes: EOMI, no lid lag, anicteric sclera Mouth: no lip lesion, mucus membranes moist Cardiovascular: S1S2 reg, no murmur, positive posterior tibial pulse bilateral, Lungs: CTA bilateral, no rhonchi, no rales , no accessory muscle use Abdominal: soft, nontender to palpation, no guarding, no appreciable organomegaly Ext: no gross muscle atrophy, no edema, no contractures Left finger with removal of nail bed, mild burising, no fluctuence Neuro: CN II-XI grossly intact, no focal neuro deficits Psych: Alert, oriented, appropriate affect Medically stable for discharge as discussed with Karin REEVES from ortho. Medications review and insulin adjusted as outlined above.
[2020-07-27 11:55] LABS: Glucose,Whole Blood 364 mg/dL (75-99)
[2020-07-27] MEDS ORDERED: LIDOCAINE 1% INJ 10MG/ML (20 ML MDV) ONE (13:02)
[2020-07-27] MEDS ORDERED: LIDOCAINE 2% (PF) 20 MG/ML 10 ML AMP SQ ONE (13:22)
--- NOTE | 2020-07-27 14:22 | P.PN ---
<Dianne Carroll A - Last Filed: 07/27/20 14:18> Subjective Progress Note Date: 07/27/20 HISTORY OF PRESENT ILLNESS This is a 55-year-old male patient undergoing treatment for left index finger osteomyelitis. He is currently on Unasyn which will be discontinued and transitioned to Rocephin 2 g daily. PICC line has been inserted and he is scheduled for discharge home to complete a course of 6 weeks of Rocephin. Repeat blood work reveals normal electrolytes, creatinine at 0.8. Blood sugars are running in the 200s and 300s. C-reactive protein is 0.6 and sed rate 21. He has been afebrile, heart rate 66, blood pressure 132/81, pulse ox 98% on room air. PHYSICAL EXAMINATION Gen: This is a 55-year-old male patient. He is resting in bed and appears to be comfortable and in no acute distress. HEENT: Head is atraumatic, normocephalic. Pupils equal, round. Sclerae is anicteric. NECK: Supple. No JVD. No lymphadenopathy. LUNGS: Clear to auscultation. No wheezes or rhonchi. No intercostal retractions. HEART: Regular rate and rhythm. No murmur. ABDOMEN: Soft. Bowel sounds are present. No masses. No tenderness. EXTREMITIES: No pedal edema. No calf tenderness. Left index finger swelling and redness improved NEUROLOGICAL: Patient is awake, alert and oriented x3. ASSESSMENT Left index finger osteomyelitis PLAN PICC line insertion IV antibiotics with [facility] The above dictated assessment and findings were discussed with Dr. Pineda. The impression and plan of care have been directed as dictated. Dianne Carroll nurse practitioner acting as scribe for Dr. Pineda. Objective - Vital Signs Vital signs: Vital Signs Temp 98.0 F 07/27/20 02:15 Pulse 66 07/27/20 07:31 Resp 18 07/27/20 07:31 BP 132/81 07/27/20 02:15 Pulse Ox 98 07/27/20 02:15 Intake & Output 07/26/20 07/27/20 07/27/20 18:59 06:59 18:59 Intake Total 980 Balance 980 Intake: Oral 980 Other: Voiding Method Toilet Toilet Toilet # Voids 1 # Bowel Movements 1 - Labs CBC & Chem 7: 07/25/20 05:30 07/27/20 05:17 Labs: Abnormal Lab Results - Last 24 Hours (Table) 07/26/20 07/26/20 07/27/20 Range/Units 16:45 20:13 04:47 ESR (0-20) mm/Hr Glucose (70-110) mg/dL POC Glucose (mg/dL) 160 H 334 H 224 H (75-99) mg/dL 07/27/20 07/27/20 07/27/20 Range/Units 05:17 05:17 06:56 ESR 21 H (0-20) mm/Hr Glucose 234 H (70-110) mg/dL POC Glucose (mg/dL) 233 H (75-99) mg/dL <Paulino Pineda - Last Filed: 08/02/20 21:30> Objective - Vital Signs Vital signs: Vital Signs Temp 98.0 F 07/27/20 02:15 Pulse 66 07/27/20 07:31 Resp 18 07/27/20 07:31 BP 132/81 07/27/20 02:15 Pulse Ox 98 07/27/20 02:15 - Labs CBC & Chem 7: 07/25/20 05:30 07/27/20 05:17 Assessment and Plan (1) Osteomyelitis of finger of left hand Status: Acute Code(s): M86.9 - OSTEOMYELITIS, UNSPECIFIED SNOMED Code(s): 7378968876856652
--- NOTE | 2020-07-28 10:00 | IR ---
PICC LINE PLACEMENT: HISTORY: Infection requiring long-term antibiotic therapy PROCEDURE: Ultrasound and fluoroscopic guidance of PICC line placement. COMPLICATIONS: None ANESTHESIA: 1. 1% Lidocaine locally. FINDINGS/TECHNIQUE: The procedure was explained to the patient. The risks, complications, benefits and alternatives were discussed and any questions were answered. Informed consent was obtained. The patient was placed supine on the fluoroscopic table and prepped and draped in the usual sterile fash ion. Utilizing a 21 gauge needle and sonographic and fluoroscopic guidance, access in the left basi lic vein was achieved and there is placement of a 0.018 guidewire. The vein is patent. A 4-F sheath was placed over the guidewire. The guidewire and dilator were removed and a 4-F. PICC line was plac ed through the sheath with the tip at the level of the SVC. The sheath was removed, the catheter was flushed and sutured into position. The patient was stable throughout the procedure and remained sta ble upon discharge from the Department of Radiology. The vein puncture was patent under ultrasound. A hatfield scale image was obtained to document patency of the vein punctured. All elements of the maximal barrier technique were utilized. FLUOROSCOPY TIME: 0.1 minute and one image submitted IMPRESSION: Successful PICC line placement under ultrasound and fluoroscopic guidance.
== END 2020-07-27 14:43 | disposition home health service (06) | DRG 638 ==
LOC: 4SSUR 17:52
PROVIDERS: ADMIT Orthopaedic Surgery; ATTEND Orthopaedic Surgery
PROC: 02HV33Z Insertion of Infusion Device into Superior Vena Cava, Percutaneous Approach (ICD-10-PCS; principal; 2020-07-27 10:55)
DX: E11.69 Type 2 diabetes mellitus with other specified complication (principal); M86.642 Other chronic osteomyelitis, left hand; E11.42 Type 2 diabetes mellitus with diabetic polyneuropathy; E11.65 Type 2 diabetes mellitus with hyperglycemia; L03.012 Cellulitis of left finger; I10 Essential (primary) hypertension; F17.200 Nicotine dependence, unspecified, uncomplicated; Z20.828 Contact with and (suspected) exposure to other viral communicable diseases; Z79.4 Long term (current) use of insulin; S61.201A Unspecified open wound of left index finger without damage to nail, initial encounter; J41.0 Simple chronic bronchitis; I25.10 Atherosclerotic heart disease of native coronary artery without angina pectoris; Z71.6 Tobacco abuse counseling; Z79.82 Long term (current) use of aspirin; Z79.899 Other long term (current) drug therapy; Z95.1 Presence of aortocoronary bypass graft; Z87.19 Personal history of other diseases of the digestive system
CPT/HCPCS: 36573; 71045; 80048; 80053; 80202; 82565; 83036; 83735; 85025; 85027; 85652; 86140; 87070; 87075; 87205; 87635